=== PATIENT | female | born 1980 | race Caucasian/White ===

== ENCOUNTER → 2025-11-21 08:04 | Outpatient (CLI) | payer OTHER, SELFPAY ==
--- NOTE | 2025-11-21 08:44 | DI.MRI.S_ITS ---
PROCEDURE: MR KNEE LT WO CON INDICATIONS: left knee pain TECHNIQUE: Noncontrast sagittal PD fast spin echo and T2 fast spin echo with fat saturation, sagittal 3-D FLASH with fat saturation; coronal T1 spin echo and PD fast spin echo with fat saturation, and axial PD fast spin echo with fat saturation through the knee. COMPARISON: None. FINDINGS: Image quality: Excellent. Menisci: The medial and lateral menisci demonstrate normal morphology and internal signal. The meniscal root ligaments appear intact. Cruciate ligaments: The anterior and posterior cruciate ligaments appear intact. Medial structures: There is a 0.4 x 1.2 cm (transverse by craniocaudal dimension), ganglion cyst superficial to the mid MCL, with marked associated soft tissue edema. The MCL is intact. Lateral structures: The lateral collateral ligament, long and short heads of the biceps femoris tendon appear intact. The popliteus tendon appears normal; the popliteofibular ligament appears intact. The posterosuperior and anteroinferior popliteomeniscal fascicles appear intact. The arcuate and fabellofibular ligaments appear intact, on either side of the lateral inferior geniculate artery. Iliotibial band appears normal. Anterior structures: The quadriceps and patellar tendons appear intact. Lateral tilt of the patella. The medial and lateral patellofemoral ligaments are intact. Bones and cartilage: The cartilage of the medial and lateral compartments are well maintained. 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 No acute fracture. Joint space: Moderate knee effusion. No popliteal cyst. Popliteal vasculature is unremarkable. No intra-articular body. IMPRESSION: 1. 1.2 cm ganglion cyst superficial to the mid MCL, with marked associated soft tissue edema. 2. 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 Lateral tilt of the patella. 3. Moderate knee effusion. Dictated by: Louise Arcos M.D. on 11/21/2025 at 16:31 Approved by: Louise Arcos M.D. on 11/21/2025 at 16:42
== END ==
LOC: MRI 08:08
PROVIDERS: PCP Nurse Practitioner Family; Referring Provider Student in an Organized Health Care Education/Training Program; Visit Provider Student in an Organized Health Care Education/Training Program
DX: M67.462 Ganglion, left knee (principal); M25.562 Pain in left knee; M25.462 Effusion, left knee; M22.42 Chondromalacia patellae, left knee
CPT/HCPCS: 73721